=== PATIENT | female | born 1990 | race Two or more races ===

== ENCOUNTER 2019-12-20 12:06 | Inpatient (IN) | payer BC, MEDICAID ==
[~2019-12-20] VITALS: Ht 157.5 cm; Wt 60.6 kg
[2019-12-20] MEDS ORDERED: SODIUM CHLORIDE 0.9% 1,000 ML IVB ONE (12:18)
[2019-12-20 12:50] LABS: Basophils # (auto) 0 uL; Basophils % (auto) 0.2 % (0.0-2.0); Eosinophils # (auto) 0 uL; Eosinophils % (auto) 0.2 % (0.0-7.0); Hematocrit 33.4 % (36.0-46.0); Hemoglobin 11.2 g/dL (12.2-16.2); Lymphocytes # (auto) 0.5 uL; Lymphocytes % (auto) 7.7 % (10.0-50.0); Mean Corpuscular Hemoglobin 27.6 pg (28.0-32.0); Mean Corpuscular Hgb Conc. 33.4 g/dL (32.0-36.0); Mean Corpuscular Volume 82.4 fL (80.0-100.0); Monocytes # (auto) 0.4 uL; Monocytes % (auto) 6.9 % (0.0-12.0); Neutrophils # (auto) 5.2 uL; Platelet Count (auto) 195 10^3/uL (140-450); Red Blood Cells 4.05 10^6/uL (4.0-5.20); White Blood Cell 6.1 10^3/uL (4.4-10.8)
[2019-12-20] MEDS ORDERED: ONDANSETRON HCL 4 MG/2 ML VIAL IV ONE (14:45)
[2019-12-20] MEDS ORDERED: SODIUM CHLORIDE 0.9% 1,000 ML IV ONE (14:45)
[2019-12-20] MEDS ORDERED: MORPHINE SULFATE 4 MG/ML SYR/VIAL IV ONE (14:45)
[2019-12-20 15:07] LABS: INR 1.12 (0.9-1.15); Partial Thromboplastin Time 26.8 sec (23.64-32.05)
[2019-12-20 15:18] LABS: Albumin 3.9 g/dL (3.4-5.0); BUN/Creatinine Ratio 21.2; Calcium 8.8 mg/dL (8.5-10.1); Potassium 3.3 mmol/L (3.5-5.1)
[2019-12-20 15:21] LABS: Bilirubin, Total 0.4 mg/dL (0.2-1.0); Total Protein 7.8 g/dL (6.4-8.2)
[2019-12-20] MEDS ORDERED: ceFAZolin 1GM/50ML 50 ML IV ONE (15:28)
[2019-12-20] MEDS ORDERED: MIDAZOLAM HCL 1MG/1ML-2 ML VIAL ONE (15:37)
[2019-12-20] MEDS ORDERED: fentaNYL CITRATE 100 MCG/2 ML VL ONE (15:37)
[2019-12-20] MEDS ORDERED: MEPERIDINE HCL (25 MG/ML) 1ML VIAL ONE (15:37)
[2019-12-20] MEDS ORDERED: ROCURONIUM 10MG/ML 10ML VIAL IV ONE (15:37)
[2019-12-20] MEDS ORDERED: SODIUM CHLORIDE LOCK 10 ML ONE (15:38)
[2019-12-20] MEDS ORDERED: PROPOFOL 10 MG/ML 20 ML IV ONE (15:38)
[2019-12-20] MEDS ORDERED: ONDANSETRON HCL 4 MG/2 ML VIAL ONE (15:38)
[2019-12-20] MEDS ORDERED: KETOROLAC TROMETH 15 mg/ml 1ML VL IV ONE (16:30)
[2019-12-20] MEDS ORDERED: fentaNYL CITRATE 100 MCG/2 ML VL IV PRN (16:30)
[2019-12-20] MEDS ORDERED: MORPHINE SULF INJ 2 MG/ML SYRINGE 1ML IV PRN (16:30)
[2019-12-20] MEDS ORDERED: METOCLOPRAMIDE HCL 5MG/ml INJ 2ml VIAL IV PRN (16:30)
[2019-12-20] MEDS: LACTATED RINGER'S 1,000 ML IV SCH ×2 (16:42→23:24)
[2019-12-20] MEDS ORDERED: RHO (D) IMMUNE GLOBULIN 300 MCG INJ IM PRN (16:45)
[2019-12-20] MEDS ORDERED: GLYCOPYRROLATE 0.2 MG/ML 1ML VIAL ONE (16:45)
[2019-12-20] MEDS ORDERED: KETOROLAC TROMETH 60MG/2ML VIAL ONE (16:45)
[2019-12-20] MEDS ORDERED: ONDANSETRON HCL 4 MG/2 ML VIAL IV PRN (16:45)
[2019-12-20] MEDS ORDERED: NEOSTIGMINE 1 MG/ML INJ (10mg/10ML VIAL) ONE (16:45)
[2019-12-20] MEDS: HYDROmorphone HCL 2 MG/ML VL IV PRN ×2 (17:32→17:42)
[2019-12-20] MEDS ORDERED: NITROGLYCERIN 0.4 MG SL TAB SL PRN (17:45)
[2019-12-20 18:10] VITALS: BP 129/75
[2019-12-20 18:15] VITALS: BP 129/75
[2019-12-20] MEDS: MORPHINE SULF INJ 2 MG/ML SYRINGE 1ML IV PRN (18:33)
[2019-12-20 21:13] LABS: Basophils # (auto) 0 uL; Basophils % (auto) 0.2 % (0.0-2.0); Eosinophils # (auto) 0 uL; Eosinophils % (auto) 0.1 % (0.0-7.0); Lymphocytes # (auto) 0.4 uL; Monocytes # (auto) 0.4 uL
[2019-12-20 21:14] LABS: Hematocrit 23.5 % (36.0-46.0); Lymphocytes % (auto) 7.5 % (10.0-50.0); Mean Corpuscular Hemoglobin 27.8 pg (28.0-32.0); Mean Corpuscular Hgb Conc. 34.1 g/dL (32.0-36.0); Mean Corpuscular Volume 81.7 fL (80.0-100.0); Monocytes % (auto) 7.9 % (0.0-12.0); Neutrophils # (auto) 4.3 uL; Neutrophils % (auto) 84.3 % (37.0-80.0); Platelet Count (auto) 125 10^3/uL (140-450); Red Blood Cells 2.88 10^6/uL (4.0-5.20); Red Cell Distribution Width 14.9 % (11.8-14.3); White Blood Cell 5.1 10^3/uL (4.4-10.8)
[2019-12-20 22:00] VITALS: BP 99/55
[2019-12-20] MEDS ORDERED: ACETAMINOPHEN IV 1000 MG/100ML (10MG/ML) IV ONE (22:00)
[2019-12-20] MEDS: ceFAZolin 1GM/50ML 50 ML IV SCH (22:29)
[2019-12-21] MEDS: MORPHINE SULF INJ 2 MG/ML SYRINGE 1ML IV PRN ×3 (04:39→13:48)
[2019-12-21 05:36] VITALS: BP 107/59
[2019-12-21 06:01] LABS: Basophils # (auto) 0 uL; Basophils % (auto) 0.3 % (0.0-2.0); Eosinophils # (auto) 0 uL; Lymphocytes # (auto) 0.5 uL; Neutrophils # (auto) 3.1 uL; Platelet Count (auto) 123 10^3/uL (140-450)
[2019-12-21 06:04] LABS: Eosinophils % (auto) 0.4 % (0.0-7.0); Hemoglobin 7.7 g/dL (12.2-16.2); Lymphocytes % (auto) 13.3 % (10.0-50.0); Mean Corpuscular Hemoglobin 28.5 pg (28.0-32.0); Mean Corpuscular Volume 81.5 fL (80.0-100.0); Monocytes # (auto) 0.3 uL; Monocytes % (auto) 8.7 % (0.0-12.0); Neutrophils % (auto) 77.3 % (37.0-80.0); White Blood Cell 3.9 10^3/uL (4.4-10.8)
[2019-12-21] MEDS: LACTATED RINGER'S 1,000 ML IV SCH (06:13)
[2019-12-21] MEDS: ceFAZolin 1GM/50ML 50 ML IV SCH ×2 (06:14→13:47)
[2019-12-21 09:03] VITALS: BP 105/59
[2019-12-21] MEDS ORDERED: DOCUSATE SOD 100 MG CAP PO PRN (09:30)
[2019-12-21] MEDS ORDERED: BISACODYL 10 MG RECT SUPP PR PRN (09:30)
[2019-12-21] MEDS ORDERED: RHO (D) IMMUNE GLOBULIN 300 MCG INJ IM PRN (09:30)
[2019-12-21] MEDS: DOCUSATE CALCIUM 240 MG CAP PO SCH (10:09)
[2019-12-21] MEDS ORDERED: KETOROLAC TROMETH 15 mg/ml 1ML VL IV SCH (12:00)
[2019-12-21] MEDS ORDERED: KETOROLAC TROMETH 15 mg/ml 1ML VL IV ONE (12:00)
[2019-12-21] MEDS: SIMETHICONE 80 MG CHEWABLE TABLET PO SCH ×3 (12:16→22:00)
[2019-12-21 13:00] VITALS: BP 106/67
[2019-12-21] MEDS: SODIUM CHLORIDE 0.9% 1,000 ML IV SCH ×2 (13:47→20:10)
[2019-12-21] MEDS: KETOROLAC TROMETH 15 mg/ml 1ML VL IV SCH ×2 (16:16→22:00)
[2019-12-21 17:14] VITALS: BP 115/72
[2019-12-21] MEDS ORDERED: FOLI1TAB6 PO (17:33)
[2019-12-21] MEDS ORDERED: PREN-96 PO (17:33)
[2019-12-21] MEDS ORDERED: POTASSIUM CHL 20 Meq TABLET PO ONE (21:00)
[2019-12-21 21:54] VITALS: BP 134/82
[2019-12-21] MEDS ORDERED: diphenhdrAMINE HCL 25 MG CAP PO PRN (22:00)
[2019-12-21] MEDS ORDERED: TEMAZEPAM 15 MG CAP PO ONE (22:00)
[2019-12-22] MEDS: SODIUM CHLORIDE 0.9% 1,000 ML IV SCH ×4 (03:08→22:50)
[2019-12-22] MEDS: KETOROLAC TROMETH 15 mg/ml 1ML VL IV SCH (04:25)
[2019-12-22 04:57] VITALS: BP 123/76
[2019-12-22] MEDS: SIMETHICONE 80 MG CHEWABLE TABLET PO SCH ×4 (06:06→21:57)
[2019-12-22] MEDS ORDERED: ACETAMINOPHEN 325 MG TAB PO PRN (08:30)
[2019-12-22 09:00] VITALS: BP 119/81
[2019-12-22] MEDS: HYDROcodone-ACET 10/325MG TAB PO PRN ×2 (09:43→21:57)
[2019-12-22] MEDS: DOCUSATE CALCIUM 240 MG CAP PO SCH (09:43)
[2019-12-22] MEDS: MORPHINE SULF INJ 2 MG/ML SYRINGE 1ML IV PRN ×2 (11:50→18:11)
[2019-12-22 12:43] VITALS: BP 106/72
[2019-12-22 17:21] VITALS: BP 113/68
[2019-12-22 20:00] VITALS: BP 111/72
[2019-12-22 22:00] VITALS: BP 111/72
[2019-12-23 05:00] VITALS: BP 117/71
[2019-12-23] MEDS: SODIUM CHLORIDE 0.9% 1,000 ML IV SCH ×2 (05:05→11:31)
[2019-12-23] MEDS: HYDROcodone-ACET 10/325MG TAB PO PRN ×2 (05:37→10:30)
[2019-12-23] MEDS: SIMETHICONE 80 MG CHEWABLE TABLET PO SCH ×2 (05:37→11:31)
[2019-12-23 09:00] VITALS: BP 125/74
[2019-12-23] MEDS: DOCUSATE CALCIUM 240 MG CAP PO SCH (10:30)
[2019-12-23 14:50] VITALS: BP 117/74
== END 2019-12-23 16:00 | disposition home or self-care (01) | DRG 817 ==
LOC: EDBD 12:06 → ER 12:13 → TELE-WESTW 12:14 → ER 15:23 → WEST WING 12-21 23:48
PROVIDERS: ADMIT Specialist; ATTEND Specialist
PROC: 0UB60ZZ Excision of Left Fallopian Tube, Open Approach (ICD-10-PCS; 2019-12-20)
PROC: 0W9N0ZZ Drainage of Female Perineum, Open Approach (ICD-10-PCS; 2019-12-20)
PROC: 10T20ZZ Resection of Products of Conception, Ectopic, Open Approach (ICD-10-PCS; principal; 2019-12-20 15:41)
DX: O00.102 Left tubal pregnancy without intrauterine pregnancy (principal); K66.1 Hemoperitoneum; Z3A.08 8 weeks gestation of pregnancy
CPT/HCPCS: 36415; 76801; 80053; 84702; 85025; 85610; 85730; 86850; 86900; 86901; 96361; 96365; 96375; G0378; J0131; J0690; J1885; J2250; J2405; J2704

== ENCOUNTER 2025-02-19 21:01 | Emergency (ER) | payer BC, MEDICAID ==
[~2025-02-19] VITALS: Ht 157.5 cm; Wt 59.5 kg
[~2025-02-19 21:01] MED LIST: FOLI-119 PO; PREN-96 PO
--- NOTE | 2025-02-19 21:22 | ED.PDOC ---
[employer] HPI Comments 34 y/o F presents with c/o vaginal discharge and bleeding, with associated cramping lower abdominal pain, today. Patient reports being 10 weeks with her 9th , currently. ([id number]). She states on initial discharge being "brownish" in appearance and then had a bright-red clot production, later on, with light-red blood whenever she wipes. Patient reports having a current [employer]. She denies having any nausea, vomiting, hematuria, dysuria, fever, chills, lightheadedness, or other associated symptoms at this time. Vitals: temperature of 98.9F, pulse of 97, respiratory rate of 20, blood pressure of 146/93, SpO2 of 97%RA Past medical history: HTN w/nifedipine use, ectopic Past surgical history: D&C topic surgery HPI: Poor Historian. REVIEW OF SYSTEMS: CONSTITUTIONAL: Denies acute: fever, diaphoresis, chills, generalized weakness. HEAD: Denies acute: headache, photophobia Eyes: Denies acute: Double vision, vision loss, eye pain, eye discharge. EARS: Denies acute: tinnitus, hearing loss, ear discharge, ear pain, THROAT: Denies acute: sore throat, swelling, difficulty swallowing , pain with swallowing, change in voice. NECK: Denies acute: neck pain, neck swelling, stiff neck. HEART: Denies acute : chest pain, palpitations, LUNGS: Denies acute: SOB, wheezing, cough, hemoptysis ABDOMEN: Denies acute: abdominal pain, Nausea, Vomiting, diarrhea, melena , hematemesis, hematochezia SKIN: Denies acute: rash, redness, lesions, itchiness. EXTREMITIES: Denies acute: calf pain, numbness, tingling, weakness, denies pain in extremity. Denies acute: Low back pain. Neuro: Denies acute: focal neurological deficit, motor or sensory focal neurological deficit, tremors, seizure like activity, confusion, dizziness, change in mental status, loss of bowel or bladder function, cauda equina like symptoms. : Denies acute: dysuria, hematuria, flank pain, increase in urinary frequency. PSYCH: Denies acute: hallucination, suicidal ideation, homicidal ideation. FEMALE: Denies acute: foul odor, unusual discharge. PHYSICAL EXAM: General: -----mild---acute distress, awake and alert. Head: normocephalic, atraumatic. Neck: supple, trachea is midline, no swelling. Throat: Normal phonation. Eyes:, no erythema, no purulent discharge, no proptosis, no icterus. Heart: regular rate, regular rhythm, no significant murmur appreciated. Lungs: no apparent respiratory distress, Able to speak in full sentences. No wheezing, no rhonchi, no crackles. No stridors Clear to auscultation bilaterally. Abdomen: non tender to palpation, non distended, soft, no guarding, no rebound, + bowel sounds. Neuro: Awake, Alert, oriented to name, self, situation, follows commands GCS=15. Speech is normal. Skin: no petechia, no purpura, no cyanosis, non-pale, not jaundice. Lower extremities: --no - Pitting edema no deformity, no focal swelling, no calf TTP. Makes eye contact. moves all four extremities. Face: no apparent facial droop. Ambulating in the ED independently. 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 Was a procedure done?: No Differential Diagnosis (PRODUCT CONSULTANT) Vaginal Bleeding: - Complete, - Incomplete, - Inevitable, - Missed, - Threatened, Abruptio Placentae, Blood Loss Anemia, Cervicitis, Dysmenorrhea, Ectopic , Hormonal, Menorrhagia, Menometrorrhagia, Menstrual Bleeding, Myomatous Uterus, PID, Placenta Previa, Precipitous Hct, Trauma, UTI, Other (Differential diagnosis includes but not limited to DU B, menorrhea, metromenorrhagia, neoplasm, coagulopathy,, trauma, miscarriage, placenta previa, placental abruption, ) X-Ray, Labs, Meds, VS Vital Signs Date Time Temp Pulse Resp B/P (MAP) Pulse Ox O2 Delivery O2 Flow Rate FiO2 02/19/25 21:12 98.9 97 20 146/93 (110) 97 98.9 Lab Test 02/19/25 21:20 02/19/25 21:15 Range/Units White Blood Count 6.9 4.4-10.8 10^3/uL Red Blood Count 4.70 4.0-5.20 10^6/uL Hemoglobin 13.4 12.2-16.2 g/dL Hematocrit 39.2 36.0-46.0 % Mean Corpuscular Volume 83.5 80.0-100.0 fL Mean Corpuscular Hemoglobin 28.6 28.0-32.0 pg Mean Corpuscular Hemoglobin Concent 34.2 32.0-36.0 g/dL Red Cell Distribution Width 13.1 11.8-14.3 % Platelet Count 222 140-450 10^3/uL Mean Platelet Volume 9.1 6.9-10.8 fL Neutrophils (%) (Auto) 72.1 37.0-80.0 % Lymphocytes (%) (Auto) 19.3 10.0-50.0 % Monocytes (%) (Auto) 7.6 0.0-12.0 % Eosinophils (%) (Auto) 0.5 0.0-7.0 % Basophils (%) (Auto) 0.5 0.0-2.0 % Neutrophils # (Auto) 4.9 1.6-8.6 10 ^3/uL Lymphocytes # (Auto) 1.3 0.4-5.4 10 ^3/uL Monocytes # (Auto) 0.5 0-1.3 10 ^3/uL Eosinophils # (Auto) 0 0-0.8 10 ^3/uL Basophils # (Auto) 0 0-0.2 10 ^3/uL Nucleated Red Blood Cells 0.1 % Sodium Level 137 136-145 mmol/L Potassium Level 3.4 L 3.5-5.1 mmol/L Chloride Level 102 98-107 mmol/L Carbon Dioxide Level 25 20-31 mmol/L Anion Gap 10 5-15 Blood Urea Nitrogen 10 9-23 mg/dL Creatinine 0.64 0.550-1.02 mg/dL Glomerular Filtration Rate Calc 118 >90 mL/min BUN/Creatinine Ratio 15.6 10.0-20.0 Serum Glucose 100 74-106 mg/dL Calcium Level 10.3 8.7-10.4 mg/dL Total Bilirubin 0.3 0.2-1.0 mg/dL Aspartate Amino Transferase (AST) 10 L 13-40 U/L Alanine Aminotransferase (ALT) 17 7-40 U/L Alkaline Phosphatase 58 46-116 U/L Total Protein 7.8 5.7-8.2 g/dL Albumin 4.8 3.2-4.8 g/dL Beta HCG, Quantitative 130888.3 H 1.5-4.2 mIU/mL Urine Color Light-yellow Yellow Urine Clarity Turbid H Clear Urine pH 5.5 5.0-9.0 Urine Specific [employer] 1.017 1.001-1.035 Urine Protein Negative Negative Urine Ketones Negative Negative Urine Blood 2+ H Negative /uL Urine Nitrite Negative Negative Urine Bilirubin Negative Negative Urine Urobilinogen Normal Negative mg/dL Urine Leukocyte Esterase 2+ Negative /uL Urine RBC 2 0 - 4 /hpf Urine Microscopic WBC 4 0-5 /HPF Urine Squamous Epithelial Cells Few <5 /hpf Urine Bacteria Few H None Seen /hpf Urine Mucus Few None Seen Urine Glucose Normal Normal mg/dL Urine Opiates Screen Neg NEGATIVE Urine Fentanyl Screen Neg NEGATIVE Urine Barbiturates Screen Neg NEGATIVE Urine Phencyclidine Screen Neg NEGATIVE Urine Amphetamines Screen Neg NEGATIVE Urine Benzodiazepines Screen Neg NEGATIVE Urine Cocaine Screen Neg NEGATIVE Urine Cannabinoids Screen Neg NEGATIVE [address] [address] Ph: [phone] DIAGNOSTIC IMAGING Diagnostic Imaging Report : [id number] Signed PATIENT: PAWAN HODGES ACCT: [id number] UNIT: [id number] : 1990 LOC: ER ROOM / BED: / AGE / SEX: 34 / F ADM STATUS: REG ER SERVICE 07 ORDERING PHYSICIAN: ANANDA LLANES DO PROCEDURE(s): OB4US - OB ULTRASOUND COMP LESS 14WKS REASON: vag bleed during preg ORDER NUMBER(s): [id number], ACCESSION NUMBER(s): [id number] OB ULTRASOUND <14 WEEKS: HISTORY: vag bleed during preg TECHNIQUE: Multiple real-time grayscale sonographic images of the pelvis with duplex Doppler color flow, spectral and M-mode analysis. TRANSDUCERS: Transabdominal FINDINGS: The uterus measures 12.9 x 8.6 x 6.1 The cervix not measured Right ovary not visualized Left ovary measures 3.2 x 3 x 1.5 cm. Left ovarian volume is 7.17 cc. with normal Doppler color flow IUP single live fetus at 9 weeks 4 days average ultrasound age based on mean crown-rump length of 2.44 cm and gestational sac size of 4.49 cm heart rate detected at 176 beats per minute. Yolk sac visualized. Amniotic fluid adequate Jenn-gestational space: No findings of subchorionic hemorrhage. Heterogeneous intramural segment 2 posterior uterine fundus may represent a fibroid. IMPRESSION: 1. IUP single live fetus 9 weeks 4 days AUA corresponding to an JOSE of 09/20/2025. 2. FHR: 176 beats per minute ATED BY: MICHAEL GONCALVES Jr., DO DICTATED DATE/TIME: 02/19/252250 SIGNED BY: MICHAEL GONCALVES Jr., SIGNED DATE/TIME: 02/19/252250 CC: Time of 1ST Reevaluation: 21:11 Reevaluation 1ST: Unchanged Time of 2ND Reevaluation: 23:13 Reevaluation 2ND: Improved Patient Education/Counseling: Diagnosis, Treatment Family Education/Counseling: No Family Present Comments Patient presented with the above HPI.--vaginal bleed in ----workup was initiated. patient was found with the above mentioned diagnosis. the following medications were ordered: please refer to order lists of meds and tests obtained by myself Dr. Llanes. Patient ED course and VS have been stabilized. Patient has been reassessed in the ED and remained in a stable condition. Pertinent incidental findings were discussed with the patient and/or family. Patient/family voices understanding and is agreeable with plan. Patient has been observed in the ED adequate length of time to insure improvement/stability. Escalation of care considered: Consideration of escalation to observation or admission Patient was DISCHARGED home in a stable condition. All the reports of any imaging studies that were ordered by myself were reviewed by myself. Departure 1 Departure Time of Disposition: 23:12 Impression: Primary Impression: Threatened Additional Impressions: Vaginal bleeding during UTI in Disposition: 01 HOME / SELF CARE / HOMELESS Condition: Stable Additional Instructions: Additional instructions: You MUST follow-up with your primary care/family doctor in 1 to 2 days. If you are unable to see your primary care/family doctor, please return to our emergency room for re-assessment and re-evaluation in 1 to 2 days. Return to the emergency room here in our facility or to the nearest ER [facility] if your symptoms change or worsen. CONSULTATIONS: you MUST Follow-up for consultation as soon as possible with: Dr.-OB Velazquez doctor in 1-2 days. Please call for appointment. You MUST call the consultants office yourself to make an appointment. You may need to arrange that through your insurance and/or your primary/family doctor. If you are unable to see the account consultant in 1 to 2 days, you must return to our emergency room (or any other ER of your choice) for re-assessment and re- evaluation. Adequate fluid hydration. Absolute pelvic rest. Repeat pelvic ultrasound in 4-5 days. Repeat beta-hCG levels in 48-72 hours. Continue taking vitamins daily. Below is a copy of your radiological report for follow up: [place] [address] Ph: [phone] DIAGNOSTIC IMAGING Diagnostic Imaging Report : [id number] Signed PATIENT: PAWAN HODGES ACCT: [id number] UNIT: [id number] : 1990 LOC: ER ROOM / BED: / AGE / SEX: 34 / F ADM STATUS: REG ER SERVICE 07 ORDERING PHYSICIAN: ANANDA LLANES DO PROCEDURE(s): OB4US - OB ULTRASOUND COMP LESS 14WKS REASON: vag bleed during preg ORDER NUMBER(s): [id number], ACCESSION NUMBER(s): [id number] OB ULTRASOUND <14 WEEKS: HISTORY: vag bleed during preg TECHNIQUE: Multiple real-time grayscale sonographic images of the pelvis with duplex Doppler color flow, spectral and M-mode analysis. TRANSDUCERS: Transabdominal FINDINGS: The uterus measures 12.9 x 8.6 x 6.1 The cervix not measured Right ovary not visualized Left ovary measures 3.2 x 3 x 1.5 cm. Left ovarian volume is 7.17 cc. with normal Doppler color flow IUP single live fetus at 9 weeks 4 days average ultrasound age based on mean crown-rump length of 2.44 cm and gestational sac size of 4.49 cm heart rate detected at 176 beats per minute. Yolk sac visualized. Amniotic fluid adequate Jenn-gestational space: No findings of subchorionic hemorrhage. Heterogeneous intramural segment 2 posterior uterine fundus may represent a fibroid. IMPRESSION: 1. IUP single live fetus 9 weeks 4 days AUA corresponding to an JOSE of 09/20/2025. 2. FHR: 176 beats per minute ATED BY: MICHAEL GONCALVES Jr., DO DICTATED DATE/TIME: 02/19/252250 SIGNED BY: MICHAEL GONCALVES Jr., SIGNED DATE/TIME: 02/19/252250 CC: e-Prescriptions Cephalexin Monohydrate (Cephalexin) 500 Mg Tab 1 TAB PO TID for 5 Days, #15 TAB Prov: ANANDA LLANES DO 02/19/25 Discharged With: Self Critical Care Note Critical Care Time?: No I personally scribed for ANANDA LLANES DO ([email or web address]) on 02/19/25 at 21:22. Electronically submitted by Tony Mora ([email or web address]). I personally scribed for ANANDA LLANES DO ([email or web address]) on 02/19/25 at 21:31. Electronically submitted by Tony Mora ([email or web address]). ANANDA LLANES DO Feb 19, 2025 21:22
[2025-02-19 21:48] LABS: Basophils # (auto) 0 10 ^3/uL (0-0.2); Basophils % (auto) 0.5 % (0.0-2.0); Eosinophils # (auto) 0 10 ^3/uL (0-0.8); Eosinophils % (auto) 0.5 % (0.0-7.0); Hematocrit 39.2 % (36.0-46.0); Hemoglobin 13.4 g/dL (12.2-16.2); Lymphocytes # (auto) 1.3 10 ^3/uL (0.4-5.4); Lymphocytes % (auto) 19.3 % (10.0-50.0); Mean Corpuscular Hemoglobin 28.6 pg (28.0-32.0); Mean Corpuscular Hgb Conc. 34.2 g/dL (32.0-36.0); Mean Corpuscular Volume 83.5 fL (80.0-100.0); Monocytes # (auto) 0.5 10 ^3/uL (0-1.3); Monocytes % (auto) 7.6 % (0.0-12.0); Neutrophils # (auto) 4.9 10 ^3/uL (1.6-8.6); Neutrophils % (auto) 72.1 % (37.0-80.0); Nucleated Red Blood Cells % 0.1 %; Platelet Count (auto) 222 10^3/uL (140-450); Red Cell Distribution Width 13.1 % (11.8-14.3); White Blood Cell 6.9 10^3/uL (4.4-10.8)
[2025-02-19 22:04] LABS: Alanine Aminotransferase 17 U/L (7-40); Albumin 4.8 g/dL (3.2-4.8); Alkaline Phosphatase 58 U/L (46-116); Anion Gap 10 (5-15); BUN/Creatinine Ratio 15.6 (10.0-20.0); Blood Urea Nitrogen 10 mg/dL (9-23); Calcium 10.3 mg/dL (8.7-10.4); Carbon Dioxide 25 mmol/L (20-31); Chloride 102 mmol/L (98-107); Glucose 100 mg/dL (74-106); Sodium 137 mmol/L (136-145); Total Protein 7.8 g/dL (5.7-8.2)
[2025-02-19 22:05] LABS: Bilirubin, Total 0.3 mg/dL (0.2-1.0)
[2025-02-19 22:06] LABS: Aspartate Aminotransferase 10 U/L (13-40); Potassium 3.4 mmol/L (3.5-5.1)
--- NOTE | 2025-02-19 22:54 | DVH ---
OB ULTRASOUND <14 WEEKS: HISTORY: vag bleed during preg TECHNIQUE: Multiple real-time grayscale sonographic images of the pelvis with duplex Doppler color f low, spectral and M-mode analysis. TRANSDUCERS: Transabdominal FINDINGS: The uterus measures 12.9 x 8.6 x 6.1 The cervix not measured Right ovary not visualized Left ovary measures 3.2 x 3 x 1.5 cm. Left ovarian volume is 7.17 cc. with normal Doppler color flow IUP single live fetus at 9 weeks 4 days average ultrasound age based on mean crown-rump length of 2.4 4 cm and gestational sac size of 4.49 cm heart rate detected at 176 beats per minute. Yolk sac visualized. Amniotic fluid adequate Jenn-gestational space: No findings of subchorionic hemorrhage. Heterogeneous intramural segment 2 po sterior uterine fundus may represent a fibroid. IMPRESSION: 1. IUP single live fetus 9 weeks 4 days AUA corresponding to an JOSE of 09/20/2025. 2. FHR: 176 beats per minute
[2025-02-19 23:44] LABS: Urine Bacteria FEW /hpf (None Seen); Urine Blood 2+ /uL (Negative); Urine Clarity Turbid (Clear); Urine Color Light-Yellow (Yellow); Urine Mucus FEW (None Seen); Urine Protein, UAD Negative (Negative); Urine Specific Gravity 1.017 (1.001-1.035); Urine Squamous Epithelial Cell FEW /hpf (<5); Urine Urobilinogen Normal (Negative); Urine WBC 4 /HPF (0-5); Urine pH 5.5 (5.0-9.0)
[2025-02-19 23:46] LABS: Barbiturate Scree,Urine Neg (NEGATIVE); Opiate Scree,Urine Neg (NEGATIVE)
[2025-02-19 23:47] LABS: Amphetamine Screen, Urine Neg (NEGATIVE); Benzodiazephine Screen, Urine Neg (NEGATIVE); Cannabinoid Screen, Urine Neg (NEGATIVE); Cocaine Screen, Urine Neg (NEGATIVE); Phencyclidine Screen, Urine Neg (NEGATIVE)
[2025-02-19] MEDS ORDERED: CEPH500T PO (23:56)
[2025-02-20] MEDS: SODIUM CHLORIDE 0.9% 1,000 ML IV ONE (00:37)
[2025-02-20 00:41] VITALS: BP 118/83; PULSE 98; RESP 19; TEMP 98.6; O2SAT 97
[2025-02-20] MEDS: CEPHALEXIN 250 MG CAP PO ONE (00:57)
== END 2025-02-20 01:06 | disposition home or self-care (01) ==
LOC: ER 21:01
DX: O20.0 Threatened abortion (principal); O23.41 Unspecified infection of urinary tract in pregnancy, first trimester; O20.9 Hemorrhage in early pregnancy, unspecified; O10.911 Unspecified pre-existing hypertension complicating pregnancy, first trimester; N39.0 Urinary tract infection, site not specified; Z3A.10 10 weeks gestation of pregnancy; Z79.899 Other long term (current) drug therapy
CPT/HCPCS: 36415; 76801; 80053; 80307; 81001; 84702; 85025; 86850; 86900; 86901